=== PATIENT | male | born 1960 | race Caucasian/White ===

== ENCOUNTER 2017-02-01 08:15 | Outpatient (CLI) | payer BC | END 2017-02-01 08:16 | disposition home or self-care (01) | DX: E11.9 Type 2 diabetes mellitus without complications (principal); Z79.899 Other long term (current) drug therapy ==

== ENCOUNTER 2017-04-26 07:18 | Outpatient (CLI) | payer BC ==
[2017-04-26 11:04] LABS: BASOPHILS # (AUTO) 0.2 10^3/uL (0.0-0.1); EOSINOPHILS # (AUTO) 0.5 10^3/uL (0.0-0.7); EOSINOPHILS % (AUTO) 5.8 %; HCT - HEMATOCRIT 43.4 % (42.0-52.0); HGB - HEMOGLOBIN 14.7 g/dL (14.0-18.0); LYMPHOCYTES # (AUTO) 1.9 10^3/uL (1.5-3.5); LYMPHOCYTES % (AUTO) 24.9 %; MEAN CORPUSCULAR HEMOGLOBIN 30.6 pg (27.0-31.0); MEAN CORPUSCULAR HGB CONC 33.9 g/dL (32.0-36.0); MEAN CORPUSCULAR VOLUME 90.1 fL (80.0-94.0); MEAN PLATELET VOLUME 9.4 fL (7.4-11.4); MONOCYTES # (AUTO) 0.6 10^3/uL (0.0-1.0); MONOCYTES % (AUTO) 7.4 %; NEUTROPHILS # (AUTO) 4.7 10^3/uL (1.5-6.6); NEUTROPHILS % (AUTO) 59.9 %; RED BLOOD COUNT 4.82 10^6/uL (4.70-6.10); RED CELL DISTRIBUTION WIDTH 13.7 % (12.0-15.0); UNCORRECTED WHITE BLOOD COUNT 7.8 x10^3/uL; WHITE BLOOD COUNT 7.8 x10^3/uL (4.8-10.8)
[2017-04-26 11:19] LABS: ALBUMIN/GLOBULIN RATIO 1.5 (1.0-2.2); BILIRUBIN,TOTAL 0.8 mg/dL (0.2-1.0); BUN - BLOOD UREA NITROGEN 15 mg/dL (6-20); CALCIUM 9.3 mg/dL (8.5-10.3); CARBON DIOXIDE - CO2 27 mmol/L (21-32); CHLORIDE 99 mmol/L (101-111); CHOL/HDL RATIO 3.2 (<5.0); CHOLESTEROL 162 mg/dL; CREATININE 0.9 mg/dL (0.6-1.2); GFR - MDRD 87 (>89); GLUCOSE 128 mg/dL (70-100); HDL CHOLESTEROL 50 mg/dL; LDL/HDL RATIO 1.6 (<3.6); SODIUM 136 mmol/L (135-145); TOTAL PROTEIN 7.6 g/dL (6.7-8.2); TRIGLYCERIDES 148 mg/dL; VLDL CHOLESTEROL 30 mg/dL
== END 2017-04-26 07:19 | disposition home or self-care (01) ==
LOC: LAB.F 07:18
PROVIDERS: ATTEND Physician Assistant Medical
DX: Z00.00 Encounter for general adult medical examination without abnormal findings (principal); Z12.5 Encounter for screening for malignant neoplasm of prostate; E11.9 Type 2 diabetes mellitus without complications; E78.2 Mixed hyperlipidemia; E03.9 Hypothyroidism, unspecified; Z11.59 Encounter for screening for other viral diseases; Z79.899 Other long term (current) drug therapy
CPT/HCPCS: 36415; 80053; 80061; 83036; 84153; 84443; 85025; 86803

== ENCOUNTER 2017-04-26 08:00 | Outpatient (CLI) | payer BC ==
[2017-05-01 11:05] LABS: HEMOGLOBIN A1C 0.82 g/dL
== END 2017-04-26 23:59 | disposition home or self-care (01) ==
LOC: LAB.R 08:00
PROVIDERS: ATTEND Physician Assistant Medical
DX: E11.9 Type 2 diabetes mellitus without complications (principal); Z79.899 Other long term (current) drug therapy
CPT/HCPCS: 83036

== ENCOUNTER 2017-05-03 16:34 | Emergency (ER) | payer OTHER, BC ==
[2017-05-03 16:40] VITALS: BP 170/94
[2017-05-03] MEDS ORDERED: LIDOCAINE 2% 10 ML MDV ONE (16:42)
--- NOTE | 2017-05-03 16:49 | ED Physician Documentation ---
History of Present Illness - Stated complaint Stated Complaint: FINGER LAC - Chief complaint Chief Complaint: Ext Problem - History obtained from History obtained from: Patient - Additonal information Additional information: Patient is a 57-year-old man who sustained a small laceration to his nondominant left middle finger while he was cutting shrubbery. His last tetanus was 7 years ago which included pertussis. He has no other complaints of injury. The pain is worse with movement and better with rest. First-aid was done after the injury with washing the finger a bandage was placed and he is here seeking evaluation. He has no other complaints. Review of systems: For pertinent positive and negatives in the review of systems please see history of present illness. Otherwise all other systems have been reviewed and are negative. Dragon disclaimer: Parts of this medical record were created using voice recognition technology. Because of the inherent limitations of this system occasional same sounding word substitutions do occur and persist despite proofreading. Please read the document for context. Review of Systems Ten Systems: 10 systems reviewed and negative Constitutional: reports: Chills. denies: Fever Eyes: denies: Loss of vision Ears: denies: Loss of hearing Cardiac: denies: Chest pain / pressure, Palpitations Respiratory: denies: Dyspnea, Cough GI: denies: Abdominal Pain, Abdominal Swelling, Nausea, Vomiting : denies: Dysuria, Frequency, Hesitancy, Unable to Void Skin: denies: Rash, Lesions Musculoskeletal: denies: Neck pain, Back pain Neurologic: denies: Generalized weakness Psychiatric: denies: Depressed, Suicidal, Homicidal Endocrine: denies: Polydypsia, Polyuria, Polyphagia PD PAST MEDICAL HISTORY - Past Medical History Past Medical History: Yes Cardiovascular: Hypertension, High cholesterol Endocrine/Autoimmune: Type 2 diabetes, HyPOthyroidism - Past Surgical History Past Surgical History: No - Present Medications Home Medications: Ambulatory Orders Medication Instructions Recorded Confirmed Atorvastatin [Lipitor] 20 mg PO DAILY 01/23/15 05/03/17 Lisinopril 10 mg PO DAILY 01/23/15 05/03/17 Metformin HCl 2,000 mg PO DAILY 01/23/15 05/03/17 Levothyroxine Sodium 88 mcg PO DAILY 05/03/17 05/03/17 - Allergies Allergies/Adverse Reactions: Allergies Allergy/AdvReac Type Severity Reaction Status Date / Time No Known Drug Allergies Allergy Verified 01/23/15 12:56 - Social History Does the pt smoke?: No Smoking Status: Never smoker Does the pt drink ETOH?: No Does the pt have substance abuse?: No - Immunizations Immunizations are current?: Yes Immunizations: TDAP current <10years - POLST Patient has POLST: No PD ED PE NORMAL - General General: Alert and oriented X 3, No acute distress, Well developed/nourished - HEENT HEENT: Atraumatic - Neck Neck: Supple, no meningeal sign - Cardiac Cardiac: RRR - Respiratory Respiratory: No respiratory distress - Abdomen Abdomen: Soft Results - Vitals Vitals: Vital Signs - 24 hr 05/03/17 16:37 Temperature 36.7 C Heart Rate 71 Respiratory 17 Rate Blood Pressure 170/94 H O2 Saturation 100 Oxygen O2 Source Room air PD MEDICAL DECISION MAKING - ED course ED course: Patient has a very small laceration perhaps three quarters of a centimeter in length to the left middle finger. It is off the midline. There is no likelihood of tendon injury. Strength testing is normal at this for facialis and profundusThe superficialis and profundus tendon. The area was cleansed, anesthetized with 1 cc of lidocaine without epinephrine and 4 single interrupted sutures of 5.0 Ethicon were placed there is good approximation and hemostasis antibiotics are not indicated suture removal is recommended at 7-10 days . Disposition: To home Clinical impression: 1. Left middle finger laceration approximately 0.75 cm in length status post suture closure Departure - Departure Disposition: 01 Home, Self Care Clinical Impression: Laceration of middle finger of left hand without complication Condition: Good Instructions: ED Laceration Hand Follow-Up: Corinne Mccrary PA-C [Primary Care Provider] - Comments: Suture removal in approximately 7-10 days Discharge Date/Time: 05/03/17 17:11
== END 2017-05-03 17:11 | disposition home or self-care (01) ==
LOC: ED 16:34
DX: S61.213A Laceration without foreign body of left middle finger without damage to nail, initial encounter (principal); W45.8XXA Other foreign body or object entering through skin, initial encounter; Y93.H2 Activity, gardening and landscaping; I10 Essential (primary) hypertension; E11.9 Type 2 diabetes mellitus without complications
CPT/HCPCS: 1040M; 12001; 99282; 99283

== ENCOUNTER 2017-08-16 07:32 | Outpatient (CLI) | payer BC ==
[2017-08-16 12:56] LABS: HEMOGLOBIN A1C 0.93 g/dL
== END 2017-08-16 07:33 | disposition home or self-care (01) ==
LOC: LAB.F 07:32
PROVIDERS: ATTEND Physician Assistant Medical
DX: E11.9 Type 2 diabetes mellitus without complications (principal); Z79.899 Other long term (current) drug therapy
CPT/HCPCS: 36415; 82947; 83036

== ENCOUNTER 2017-11-10 07:15 | Outpatient (CLI) | payer BC ==
[2017-11-10 12:22] LABS: HB2 TOTAL 16.4 g/dL; HEMOGLOBIN A1C 0.66 g/dL; HEMOGLOBIN A1C % 5.8 % (4.6-6.2)
== END 2017-11-10 07:16 | disposition home or self-care (01) ==
LOC: LAB.F 07:15
PROVIDERS: ATTEND Physician Assistant Medical
DX: E11.9 Type 2 diabetes mellitus without complications (principal)
CPT/HCPCS: 36415; 82947; 83036

== ENCOUNTER 2018-02-27 08:51 | Outpatient (CLI) | payer BC ==
[2018-02-27 17:42] LABS: HEMOGLOBIN A1C 0.61 g/dL; HEMOGLOBIN A1C % 5.6 % (4.6-6.2)
== END 2018-02-27 08:52 | disposition home or self-care (01) ==
LOC: LAB.F 08:51
PROVIDERS: ATTEND Physician Assistant Medical
DX: E11.9 Type 2 diabetes mellitus without complications (principal); Z79.899 Other long term (current) drug therapy
CPT/HCPCS: 36415; 82947; 83036

== ENCOUNTER 2018-05-28 07:18 | Outpatient (CLI) | payer BC ==
[2018-05-28 12:01] LABS: BASOPHILS # (AUTO) 0.1 10^3/uL (0.0-0.1); BASOPHILS % (AUTO) 1.9 %; EOSINOPHILS # (AUTO) 0.4 10^3/uL (0.0-0.7); EOSINOPHILS % (AUTO) 5.6 %; HGB - HEMOGLOBIN 14.1 g/dL (14.0-18.0); LYMPHOCYTES # (AUTO) 1.6 10^3/uL (1.5-3.5); LYMPHOCYTES % (AUTO) 23.5 %; MEAN CORPUSCULAR HEMOGLOBIN 31.4 pg (27.0-31.0); MEAN CORPUSCULAR HGB CONC 33.9 g/dL (32.0-36.0); MEAN CORPUSCULAR VOLUME 92.7 fL (80.0-94.0); MEAN PLATELET VOLUME 9.7 fL (7.4-11.4); MONOCYTES # (AUTO) 0.5 10^3/uL (0.0-1.0); MONOCYTES % (AUTO) 7.1 %; NEUTROPHILS # (AUTO) 4.2 10^3/uL (1.5-6.6); NEUTROPHILS % (AUTO) 61.9 %; PLT - PLATELET COUNT 212 10^3/uL (130-450); RED BLOOD COUNT 4.49 10^6/uL (4.70-6.10); RED CELL DISTRIBUTION WIDTH 13.4 % (12.0-15.0); WHITE BLOOD COUNT 6.8 x10^3/uL (4.8-10.8)
[2018-05-28 12:27] LABS: ALBUMIN 4.1 g/dL (3.2-5.5); ALBUMIN/GLOBULIN RATIO 1.3 (1.0-2.2); ALKALINE PHOSPHATASE 54 IU/L (42-121); ALT ALANINE AMINOTRANSFERASE 28 IU/L (10-60); AST ASPARTATE AMINOTRANSFERASE 25 IU/L (10-42); BILIRUBIN,TOTAL 0.9 mg/dL (0.2-1.0); BUN - BLOOD UREA NITROGEN 15 mg/dL (6-20); CALCIUM 9.3 mg/dL (8.5-10.3); CARBON DIOXIDE - CO2 27 mmol/L (21-32); CHLORIDE 104 mmol/L (101-111); CHOL/HDL RATIO 2.8 (<5.0); CHOLESTEROL 148 mg/dL; CREATININE 0.9 mg/dL (0.6-1.2); GFR - MDRD 86 (>89); GLUCOSE 95 mg/dL (70-100); HDL CHOLESTEROL 53 mg/dL; LDL CHOLESTEROL,CALCULATED 81 mg/dL; LDL/HDL RATIO 1.5 (<3.6); SODIUM 137 mmol/L (135-145); TOTAL PROTEIN 7.3 g/dL (6.7-8.2); VLDL CHOLESTEROL 14 mg/dL
[2018-05-28 12:40] LABS: HB2 TOTAL 15.3 g/dL; HEMOGLOBIN A1C 0.55 g/dL; HEMOGLOBIN A1C % 5.4 % (4.6-6.2)
== END 2018-05-28 07:19 | disposition home or self-care (01) ==
LOC: LAB.F 07:18
PROVIDERS: ATTEND Physician Assistant Medical
DX: E03.9 Hypothyroidism, unspecified (principal); Z79.899 Other long term (current) drug therapy; E78.2 Mixed hyperlipidemia; E11.9 Type 2 diabetes mellitus without complications
CPT/HCPCS: 36415; 80053; 80061; 83036; 83721; 84443; 85025

== ENCOUNTER 2018-09-10 07:09 | Outpatient (CLI) | payer BC ==
[2018-09-10 15:29] LABS: ALBUMIN 4.6 g/dL (3.2-5.5); ALBUMIN/GLOBULIN RATIO 1.6 (1.0-2.2); ALKALINE PHOSPHATASE 65 IU/L (42-121); ALT ALANINE AMINOTRANSFERASE 32 IU/L (10-60); AST ASPARTATE AMINOTRANSFERASE 24 IU/L (10-42); BILIRUBIN,TOTAL 0.9 mg/dL (0.2-1.0); BUN - BLOOD UREA NITROGEN 17 mg/dL (6-20); CARBON DIOXIDE - CO2 29 mmol/L (21-32); CHLORIDE 102 mmol/L (101-111); CHOL/HDL RATIO 2.6 (<5.0); CHOLESTEROL 148 mg/dL; CREATININE 0.9 mg/dL (0.6-1.2); GFR - MDRD 86 (>89); GLUCOSE 115 mg/dL (70-100); HDL CHOLESTEROL 57 mg/dL; LDL CHOLESTEROL,CALCULATED 79 mg/dL; LDL/HDL RATIO 1.4 (<3.6); SODIUM 136 mmol/L (135-145); TOTAL PROTEIN 7.5 g/dL (6.7-8.2); VLDL CHOLESTEROL 12 mg/dL
[2018-09-10 15:39] LABS: HB2 TOTAL 15.4 g/dL; HEMOGLOBIN A1C 0.58 g/dL; HEMOGLOBIN A1C % 5.6 % (4.6-6.2)
== END 2018-09-10 07:10 | disposition home or self-care (01) ==
LOC: LAB.F 07:09
PROVIDERS: ATTEND Internal Medicine
DX: E78.5 Hyperlipidemia, unspecified (principal); E11.9 Type 2 diabetes mellitus without complications; E03.9 Hypothyroidism, unspecified
CPT/HCPCS: 36415; 80053; 80061; 82043; 83036; 83721; 84443

== ENCOUNTER 2018-09-15 12:49 | Emergency (ER) | payer BC ==
[2018-09-15 13:06] VITALS: BP 142/81
[2018-09-15 13:13] LABS: BILIRUBIN,URINE NEGATIVE (NEGATIVE); GLUCOSE, URINE (UA) NEGATIVE (NEGATIVE); KETONES,URINE (UA) NEGATIVE (NEGATIVE); LEUKOCYTE ESTERASE, URINE NEGATIVE (NEGATIVE); NITRITE,URINE NEGATIVE (NEGATIVE); OCCULT BLOOD,URINE SMALL (NEGATIVE); PROTEIN,URINE NEGATIVE (NEGATIVE); UROBILINOGEN,URINE 0.2 (NORMAL) E.U./dL (NORMAL)
[2018-09-15 13:24] LABS: BACTERIA,URINE None Seen /HPF (None Seen); CLARITY,URINE CLEAR (CLEAR); RBC,URINE 0-5 /HPF (0-5); SQUAMOUS EPITHELIAL CELL,UR NONE SEEN (<= Few)
[2018-09-15 13:30] LABS: BASOPHILS # (AUTO) 0.1 10^3/uL (0.0-0.1); BASOPHILS % (AUTO) 0.5 %; EOSINOPHILS # (AUTO) 0.1 10^3/uL (0.0-0.7); EOSINOPHILS % (AUTO) 0.6 %; HGB - HEMOGLOBIN 14.5 g/dL (14.0-18.0); LYMPHOCYTES # (AUTO) 1.1 10^3/uL (1.5-3.5); LYMPHOCYTES % (AUTO) 9.8 %; MEAN CORPUSCULAR HEMOGLOBIN 31.5 pg (27.0-31.0); MEAN CORPUSCULAR HGB CONC 34.5 g/dL (32.0-36.0); MEAN CORPUSCULAR VOLUME 91.3 fL (80.0-94.0); MEAN PLATELET VOLUME 8.8 fL (7.4-11.4); MONOCYTES # (AUTO) 0.9 10^3/uL (0.0-1.0); MONOCYTES % (AUTO) 7.7 %; NEUTROPHILS # (AUTO) 9.3 10^3/uL (1.5-6.6); NEUTROPHILS % (AUTO) 81.4 %; PLT - PLATELET COUNT 202 10^3/uL (130-450); WHITE BLOOD COUNT 11.5 x10^3/uL (4.8-10.8)
[2018-09-15 13:43] LABS: ALBUMIN 4.4 g/dL (3.2-5.5); ALBUMIN/GLOBULIN RATIO 1.4 (1.0-2.2); BILIRUBIN,TOTAL 0.9 mg/dL (0.2-1.0); CALCIUM 9.3 mg/dL (8.5-10.3); CREATININE 1.4 mg/dL (0.6-1.2); TOTAL PROTEIN 7.5 g/dL (6.7-8.2)
--- NOTE | 2018-09-15 15:04 | ED Physician Documentation ---
PD HPI ABD PAIN - Stated complaint Stated Complaint: L SIDE PX - Chief complaint Chief Complaint: Abd Pain - History obtained from History obtained from: Patient - History of Present Illness Timing - onset: Other (L side and LUQ pain since yesterday with 1 episode of vomiting. Was sharp, now more pressure. Now rad to LLQ. Nausea gone. Took ibuprofen with mild relief.) PD PAST MEDICAL HISTORY - Past Medical History Past Medical History: Yes Cardiovascular: Hypertension, High cholesterol Endocrine/Autoimmune: Type 2 diabetes, HyPOthyroidism - Past Surgical History Past Surgical History: No - Present Medications Home Medications: Ambulatory Orders Medication Instructions Recorded Confirmed Atorvastatin [Lipitor] 20 mg PO DAILY 01/23/15 05/03/17 Lisinopril 10 mg PO DAILY 01/23/15 05/03/17 Metformin HCl 2,000 mg PO DAILY 01/23/15 05/03/17 Levothyroxine Sodium 88 mcg PO DAILY 05/03/17 05/03/17 Hydrocodone/Acetaminophen 1 - 2 each PO Q6H PRN #14 tablet 09/15/18 [Hydrocodon-Acetaminophen 5-325] Tamsulosin [Flomax] 0.4 mg PO DAILY #14 capsule 09/15/18 - Allergies Allergies/Adverse Reactions: Allergies Allergy/AdvReac Type Severity Reaction Status Date / Time No Known Drug Allergies Allergy Verified 09/15/18 13:06 - Social History Does the pt smoke?: No Smoking Status: Never smoker Does the pt drink ETOH?: No Does the pt have substance abuse?: No - Family History Family history: reports: Non contributory - Immunizations Immunizations are current?: Yes Immunizations: TDAP current <10years - POLST Patient has POLST: No PD ED PE NORMAL - Vitals Vital signs reviewed: Yes - General General: Alert and oriented X 3, No acute distress - Abdomen Abdomen: Normal bowel sounds, Soft, Non tender - Back Back: No CVA TTP, No spinal TTP - Derm Derm: Normal color, Warm and dry - Neuro Neuro: Alert and oriented X 3, Normal speech - Psych Psych: Normal mood, Normal affect Results - Vitals Vitals: Vital Signs - 24 hr 09/15/18 13:04 Temperature 37.2 C Heart Rate 82 Respiratory 18 Rate Blood Pressure 142/81 H O2 Saturation 100 Oxygen O2 Source Room air - Labs Labs: Laboratory Tests 09/15/18 09/15/18 09/15/18 13:10 13:23 13:23 WBC 11.5 H RBC 4.60 L Hgb 14.5 Hct 42.0 MCV 91.3 MCH 31.5 H MCHC 34.5 RDW 13.0 Plt Count 202 MPV 8.8 Neut # (Auto) 9.3 H Lymph # (Auto) 1.1 L [place] # (Auto) 0.9 Eos # (Auto) 0.1 Baso # (Auto) 0.1 Absolute Nucleated RBC 0.00 Nucleated RBC % 0.0 Sodium 135 Potassium 3.9 Chloride 99 L Carbon Dioxide 27 Anion Gap 9.0 BUN 17 Creatinine 1.4 H Estimated GFR (MDRD) 52 L Glucose 125 H Calcium 9.3 Total Bilirubin 0.9 AST 26 ALT 26 Alkaline Phosphatase 63 Total Protein 7.5 Albumin 4.4 Globulin 3.1 Albumin/Globulin Ratio 1.4 Lipase 24 Urine Color LIGHT YELLOW Urine Clarity CLEAR Urine pH 6.0 Ur Specific [place] <=1.005 Urine Protein NEGATIVE Urine Glucose (UA) NEGATIVE Urine Ketones NEGATIVE Urine Occult Blood SMALL H Urine Nitrite NEGATIVE Urine Bilirubin NEGATIVE Urine Urobilinogen 0.2 (NORMAL) Ur Leukocyte Esterase NEGATIVE Urine RBC 0-5 Urine WBC 0-3 Ur Squamous Epith Cells NONE SEEN Urine Bacteria None Seen Ur Microscopic Review INDICATED Urine Culture Comments NOT INDICATED - Rads (name of study) CT KUB Radiology: EMP read contemporaneously (4mm L UVC stone with some obstruction) PD MEDICAL DECISION MAKING - ED course ED course: 58-year-old gentleman with symptoms reminiscent of renal colic. Note made that he had outpatient labs done 5 days ago and his creatinine was 0.9, now 1.4. Avoidance of nephrotoxic agents including NSAIDs was advised. He declines pain medication on initial evaluation. Departure - Departure Disposition: Home, Self Care Clinical Impression: Ureterolithiasis Condition: Good Record reviewed to determine appropriate education?: Yes Instructions: ED Stone Renal W Colic Prescriptions: Hydrocodone/Acetaminophen [Hydrocodon-Acetaminophen 5-325] 1 - 2 each PO Q6H PRN #14 tablet PRN Reason: pain Tamsulosin [Flomax] 0.4 mg PO DAILY #14 capsule Comments: Reasonable to follow-up with urologist in a few days if not better. The closest to you [place] in [place], the numbers [phone]. Even if you are better you should have your renal function retested by your doctor in about a week. Drink plenty of fluids. As discussed we should be avoiding any nonsteroidal anti- inflammatory drugs such as Motrin, Aleve, ibuprofen, Advil.
--- NOTE | 2018-09-15 16:33 | CT Report ---
Reason: L flank pain Procedure Date: 09/15/2018 Accession Number: [id number] / [id number] Procedure: CT - Abdomen/Pelvis W/O CPT Code: FULL RESULT: EXAM: CT ABDOMEN AND PELVIS (CT KUB) EXAM DATE: 09/15/2018 04:08 PM. CLINICAL HISTORY: L flank pain. COMPARISONS: CT KUB 01/23/2015. TECHNIQUE: Routine axial helical CT imaging was performed through the abdomen and pelvis without IV contrast. Reconstructions: Coronal and sagittal. In accordance with CT protocol optimization, one or more of the following dose reduction techniques were utilized for this exam: automated exposure control, adjustment of mA and/or KV based on patient size, or use of iterative reconstructive technique. FINDINGS: Lung Bases: Unremarkable. Mild coronary artery calcifications. Right Kidney/Ureter: New nonobstructing 3 mm lower pole calculus. No hydronephrosis, hydroureter or significant perinephric stranding. Left Kidney/Ureter: Mild to moderate hydroureteronephrosis, increased from the prior exam, with perinephric and periureteral stranding again demonstrated. Ureteral dilatation extends down to the level of a 4 mm calculus at the UVJ. No intrarenal calculi. Other Solid Organs: Noncontrast images of the solid organs are grossly unremarkable. Gallbladder/Bile Ducts: Unremarkable. Peritoneal Cavity: No free fluid, free air or kait adenopathy. Bowel is grossly unremarkable. Pelvic Organs: No bladder stones or wall thickening. Noncontrast images of the visualized pelvic organs are unremarkable. Vasculature: Unremarkable. Other: None. IMPRESSION: 1. Left urinary tract obstruction secondary to a 4 mm calculus at the left UVJ. 2. Nonobstructing right nephrolithiasis. RADIA
--- NOTE | 2018-09-17 15:21 | ED Physician Documentation ---
PD HPI ABD PAIN - Stated complaint Stated Complaint: L SIDE PX - Chief complaint Chief Complaint: Abd Pain Review of Systems Constitutional: denies: Fever, Chills Cardiac: denies: Chest pain / pressure, Palpitations Respiratory: denies: Dyspnea, Cough GI: reports: Abdominal Pain, Nausea. denies: Vomiting, Constipation, Diarrhea : denies: Dysuria, Frequency, Hesitancy, Incontinent, Hematuria PD PAST MEDICAL HISTORY - Past Medical History Past Medical History: Yes Cardiovascular: Hypertension, High cholesterol Endocrine/Autoimmune: Type 2 diabetes, HyPOthyroidism - Past Surgical History Past Surgical History: No - Present Medications Home Medications: Ambulatory Orders Medication Instructions Recorded Confirmed Atorvastatin [Lipitor] 20 mg PO DAILY 01/23/15 05/03/17 Lisinopril 10 mg PO DAILY 01/23/15 05/03/17 Metformin HCl 2,000 mg PO DAILY 01/23/15 05/03/17 Levothyroxine Sodium 88 mcg PO DAILY 05/03/17 05/03/17 Hydrocodone/Acetaminophen 1 - 2 each PO Q6H PRN #14 tablet 09/15/18 [Hydrocodon-Acetaminophen 5-325] Tamsulosin [Flomax] 0.4 mg PO DAILY #14 capsule 09/15/18 - Allergies Allergies/Adverse Reactions: Allergies Allergy/AdvReac Type Severity Reaction Status Date / Time No Known Drug Allergies Allergy Verified 09/15/18 13:06 - Social History Does the pt smoke?: No Smoking Status: Never smoker Does the pt drink ETOH?: No Does the pt have substance abuse?: No - Immunizations Immunizations are current?: Yes Immunizations: TDAP current <10years - POLST Patient has POLST: No Results - Vitals Vitals: Oxygen O2 Source Room air - Labs Labs: Laboratory Tests 09/15/18 09/15/18 09/15/18 13:10 13:23 13:23 WBC 11.5 H RBC 4.60 L Hgb 14.5 Hct 42.0 MCV 91.3 MCH 31.5 H MCHC 34.5 RDW 13.0 Plt Count 202 MPV 8.8 Neut # (Auto) 9.3 H Lymph # (Auto) 1.1 L [place] # (Auto) 0.9 Eos # (Auto) 0.1 Baso # (Auto) 0.1 Absolute Nucleated RBC 0.00 Nucleated RBC % 0.0 Sodium 135 Potassium 3.9 Chloride 99 L Carbon Dioxide 27 Anion Gap 9.0 BUN 17 Creatinine 1.4 H Estimated GFR (MDRD) 52 L Glucose 125 H Calcium 9.3 Total Bilirubin 0.9 AST 26 ALT 26 Alkaline Phosphatase 63 Total Protein 7.5 Albumin 4.4 Globulin 3.1 Albumin/Globulin Ratio 1.4 Lipase 24 Urine Color LIGHT YELLOW Urine Clarity CLEAR Urine pH 6.0 Ur Specific [place] <=1.005 Urine Protein NEGATIVE Urine Glucose (UA) NEGATIVE Urine Ketones NEGATIVE Urine Occult Blood SMALL H Urine Nitrite NEGATIVE Urine Bilirubin NEGATIVE Urine Urobilinogen 0.2 (NORMAL) Ur Leukocyte Esterase NEGATIVE Urine RBC 0-5 Urine WBC 0-3 Ur Squamous Epith Cells NONE SEEN Urine Bacteria None Seen Ur Microscopic Review INDICATED Urine Culture Comments NOT INDICATED PD MEDICAL DECISION MAKING - ED course ED course: This document for ROS only Departure - Departure Disposition: 01 Home, Self Care Clinical Impression: Ureterolithiasis Condition: Good Instructions: ED Stone Renal W Colic Prescriptions: Hydrocodone/Acetaminophen [Hydrocodon-Acetaminophen 5-325] 1 - 2 each PO Q6H PRN #14 tablet PRN Reason: pain Tamsulosin [Flomax] 0.4 mg PO DAILY #14 capsule Comments: Reasonable to follow-up with urologist in a few days if not better. The closest to you is in [place], the numbers [phone]. Even if you are better you should have your renal function retested by your doctor in about a week. Drink plenty of fluids. As discussed we should be avoiding any nonsteroidal anti- inflammatory drugs such as Motrin, Aleve, ibuprofen, Advil. Discharge Date/Time: 09/15/18 17:40
== END 2018-09-15 17:40 | disposition home or self-care (01) ==
LOC: ED 12:49
DX: N20.1 Calculus of ureter (principal); R79.89 Other specified abnormal findings of blood chemistry; I10 Essential (primary) hypertension; E11.9 Type 2 diabetes mellitus without complications; Z79.84 Long term (current) use of oral hypoglycemic drugs
CPT/HCPCS: 36415; 74176; 80053; 81001; 81003; 83690; 85025; 87086; 99283

== ENCOUNTER 2019-06-26 07:53 | Outpatient (CLI) | payer BC ==
[2019-06-26 10:18] LABS: ALBUMIN 4.4 g/dL (3.2-5.5); ALBUMIN/GLOBULIN RATIO 1.2 (1.0-2.2); ALKALINE PHOSPHATASE 61 IU/L (42-121); ALT ALANINE AMINOTRANSFERASE 29 IU/L (10-60); AST ASPARTATE AMINOTRANSFERASE 23 IU/L (10-42); BILIRUBIN,TOTAL 0.9 mg/dL (0.2-1.0); BUN - BLOOD UREA NITROGEN 18 mg/dL (6-20); CALCIUM 9.5 mg/dL (8.5-10.3); CARBON DIOXIDE - CO2 29 mmol/L (21-32); CHLORIDE 99 mmol/L (101-111); CHOL/HDL RATIO 2.9 (<5.0); CHOLESTEROL 158 mg/dL; GFR - MDRD 76 (>89); GLUCOSE 125 mg/dL (70-100); HDL CHOLESTEROL 54 mg/dL; LDL CHOLESTEROL,CALCULATED 84 mg/dL; LDL/HDL RATIO 1.6 (<3.6); SODIUM 137 mmol/L (135-145); VLDL CHOLESTEROL 20 mg/dL
[2019-06-26 10:21] LABS: HEMOGLOBIN A1C 0.71 g/dL; HEMOGLOBIN A1C % 6.5 % (4.6-6.2)
== END 2019-06-26 07:54 | disposition home or self-care (01) ==
LOC: LAB.S 07:53
PROVIDERS: ATTEND Internal Medicine
DX: E78.5 Hyperlipidemia, unspecified (principal); E11.9 Type 2 diabetes mellitus without complications; E03.9 Hypothyroidism, unspecified
CPT/HCPCS: 36415; 80053; 80061; 83036; 83721; 84443

== ENCOUNTER 2019-06-30 08:00 | Emergency (ER) | payer BC ==
[2019-06-30 08:22] LABS: BILIRUBIN,URINE NEGATIVE (NEGATIVE); GLUCOSE, URINE (UA) NEGATIVE (NEGATIVE); KETONES,URINE (UA) NEGATIVE (NEGATIVE); LEUKOCYTE ESTERASE, URINE NEGATIVE (NEGATIVE); NITRITE,URINE NEGATIVE (NEGATIVE); OCCULT BLOOD,URINE NEGATIVE (NEGATIVE); PH,URINE 5.5 PH (5.0-7.5); PROTEIN,URINE NEGATIVE (NEGATIVE); UROBILINOGEN,URINE 0.2 (NORMAL) E.U./dL (NORMAL)
--- NOTE | 2019-06-30 08:23 | ED Physician Documentation ---
History of Present Illness - Stated complaint Stated Complaint: SIDE PX - Chief complaint Chief Complaint: Abd Pain - History obtained from History obtained from: Patient - History of Present Illness Timing: How many weeks ago (1) Pain level max: 7 Pain level now: 5 - Additonal information Additional information: R flank pain x 1 week. Has had 2 kidney stones in the past and states that this feels similar. No fevers. No vomiting. No blood in the urine. Nothing makes it better or worse. Review of Systems Constitutional: denies: Fever, Chills Throat: denies: Sore throat Cardiac: denies: Chest pain / pressure Respiratory: denies: Cough GI: denies: Vomiting, Diarrhea Skin: denies: Rash Musculoskeletal: denies: Neck pain Neurologic: denies: Focal weakness, Numbness, Headache PD PAST MEDICAL HISTORY - Past Medical History Cardiovascular: Hypertension, High cholesterol Endocrine/Autoimmune: Type 2 diabetes, HyPOthyroidism - Past Surgical History Past Surgical History: No - Present Medications Home Medications: Ambulatory Orders Medication Instructions Recorded Confirmed Atorvastatin [Lipitor] 20 mg PO DAILY 01/23/15 05/03/17 Lisinopril 10 mg PO DAILY 01/23/15 05/03/17 Metformin HCl 1,500 mg PO DAILY 01/23/15 05/03/17 Levothyroxine Sodium 88 mcg PO DAILY 05/03/17 05/03/17 Hydrocodone/Acetaminophen 1 - 2 each PO Q6H PRN #14 tablet 09/15/18 [Hydrocodon-Acetaminophen 5-325] Tamsulosin [Flomax] 0.4 mg PO DAILY #14 capsule 09/15/18 - Allergies Allergies/Adverse Reactions: Allergies Allergy/AdvReac Type Severity Reaction Status Date / Time No Known Drug Allergies Allergy Verified 06/30/19 08:06 - Social History Does the pt smoke?: No Smoking Status: Never smoker Does the pt drink ETOH?: No Does the pt have substance abuse?: No - Immunizations Immunizations are current?: Yes Immunizations: TDAP current <10years - POLST Patient has POLST: No PD ED PE NORMAL - Vitals Vital signs reviewed: Yes - General General: Alert and oriented X 3, No acute distress, Well developed/nourished - HEENT HEENT: PERRL, Moist mucous membranes - Neck Neck: Supple, no meningeal sign - Cardiac Cardiac: RRR, Strong equal pulses - Respiratory Respiratory: No respiratory distress, Clear bilaterally - Abdomen Abdomen: Soft, Non tender, Non distended - Back Back: No CVA TTP, No spinal TTP - Derm Derm: Warm and dry - Neuro Neuro: Alert and oriented X 3 - Psych Psych: Normal mood, Normal affect Results - Vitals Vitals: Vital Signs - 24 hr 06/30/19 06/30/19 08:04 09:18 Temperature 36.1 C L 36.6 C Heart Rate 77 58 L Respiratory 18 19 Rate Blood Pressure 141/80 H 140/86 H O2 Saturation 99 100 Oxygen O2 Source Room air - Labs Labs: Laboratory Tests 06/30/19 06/30/19 06/30/19 08:14 08:23 08:23 WBC 7.3 RBC 4.76 Hgb 15.0 Hct 43.7 MCV 91.8 MCH 31.5 H MCHC 34.3 RDW 12.6 Plt Count 202 MPV 10.6 Neut # (Auto) 4.4 Lymph # (Auto) 1.8 [place] # (Auto) 0.6 Eos # (Auto) 0.4 Baso # (Auto) 0.1 Absolute Nucleated RBC 0.00 Nucleated RBC % 0.0 Sodium 139 Potassium 4.0 Chloride 101 Carbon Dioxide 28 Anion Gap 10.0 BUN 16 Creatinine 1.0 Estimated GFR (MDRD) 76 L Glucose 127 H Calcium 9.6 Total Bilirubin 0.6 AST 25 ALT 30 Alkaline Phosphatase 55 Total Protein 7.7 Albumin 4.4 Globulin 3.3 Albumin/Globulin Ratio 1.3 Lipase 29 Urine Color YELLOW Urine Clarity CLEAR Urine pH 5.5 Ur Specific [place] 1.020 Urine Protein NEGATIVE Urine Glucose (UA) NEGATIVE Urine Ketones NEGATIVE Urine Occult Blood NEGATIVE Urine Nitrite NEGATIVE Urine Bilirubin NEGATIVE Urine Urobilinogen 0.2 (NORMAL) Ur Leukocyte Esterase NEGATIVE Ur Microscopic Review NOT INDICATED Urine Culture Comments NOT INDICATED - Rads (name of study) CT abd/pelvis Radiology: Prelim report reviewed, EMP read contemporaneously, See rad report (No acute abnormalities) PD MEDICAL DECISION MAKING - ED course Complexity details: reviewed results, re-evaluated patient, considered differential, d/w patient ED course: Patient with right flank pain of unclear etiology. No evidence of ureteral stones. No blood in the urine. No evidence of tumors or masses. Patient is well-appearing, nontoxic. Afebrile. Normal laboratory testing. Possible myofascial pain? We will follow-up with his PCP for further care. Patient counseled regarding signs and symptoms for which I believe and urgent re- evaluation would be necessary. Patient with good understanding of and agreement to plan and is comfortable going home at this time This document was made in part using voice recognition software. While efforts are made to proofread this document, sound alike and grammatical errors may occur. Departure - Departure Disposition: 01 Home, Self Care Clinical Impression: Flank pain Condition: Good Instructions: ED Acute Pain [facility]O Follow-Up: Nathaniel Powell MD [Primary Care Provider] - Within 1 week Comments: The cause of your pain is unclear. Your testing is normal today. Follow-up with your doctor for further care. Return if you worsen.
[2019-06-30 08:24] LABS: CLARITY,URINE CLEAR (CLEAR)
[2019-06-30] MEDS ORDERED: IOVERSOL 320 100 ML VIAL IVP ONE ×2 (08:34→08:54)
[2019-06-30 08:41] LABS: ALBUMIN 4.4 g/dL (3.2-5.5); ALBUMIN/GLOBULIN RATIO 1.3 (1.0-2.2); BILIRUBIN,TOTAL 0.6 mg/dL (0.2-1.0); CALCIUM 9.6 mg/dL (8.5-10.3); TOTAL PROTEIN 7.7 g/dL (6.7-8.2)
[2019-06-30 08:51] LABS: BASOPHILS # (AUTO) 0.1 10^3/uL (0.0-0.1); BASOPHILS % (AUTO) 1.9 %; EOSINOPHILS # (AUTO) 0.4 10^3/uL (0.0-0.7); EOSINOPHILS % (AUTO) 4.9 %; LYMPHOCYTES # (AUTO) 1.8 10^3/uL (1.5-3.5); LYMPHOCYTES % (AUTO) 24.7 %; MEAN CORPUSCULAR HEMOGLOBIN 31.5 pg (27.0-31.0); MEAN CORPUSCULAR HGB CONC 34.3 g/dL (32.0-36.0); MEAN CORPUSCULAR VOLUME 91.8 fL (80.0-94.0); MEAN PLATELET VOLUME 10.6 fL (7.4-11.4); MONOCYTES # (AUTO) 0.6 10^3/uL (0.0-1.0); MONOCYTES % (AUTO) 7.8 %; NEUTROPHILS # (AUTO) 4.4 10^3/uL (1.5-6.6); NEUTROPHILS % (AUTO) 60.3 %; PLT - PLATELET COUNT 202 10^3/uL (130-450); RED BLOOD COUNT 4.76 10^6/uL (4.70-6.10); RED CELL DISTRIBUTION WIDTH 12.6 % (12.0-15.0); WHITE BLOOD COUNT 7.3 x10^3/uL (4.8-10.8)
[2019-06-30 09:19] VITALS: BP 140/86
[2019-06-30] MEDS ORDERED: KETOROLAC 30 MG/ML VIAL IVP STA (09:27)
--- NOTE | 2019-06-30 09:30 | CT Report ---
Reason: R flank pain Procedure Date: 06/30/2019 Accession Number: [id number] / [id number] Procedure: CT - Abdomen/Pelvis W CPT Code: FULL RESULT: EXAM: CT ABDOMEN AND PELVIS EXAM DATE: 06/30/2019 08:48 AM. CLINICAL HISTORY: R flank pain. COMPARISONS: ABDOMEN/PELVIS W/O 09/15/2018 3:58 PM. TECHNIQUE: Routine helical CT imaging was performed through the abdomen and pelvis. IV contrast: OPTI 320 90ML. Enteric contrast: No. Reconstructions: Coronal and sagittal. In accordance with CT protocol optimization, one or more of the following dose reduction techniques were utilized for this exam: automated exposure control, adjustment of mA and/or KV based on patient size, or use of iterative reconstructive technique. FINDINGS: Lung Bases: Mild subsegmental atelectasis/scarring at the right lung base, somewhat increased from prior. Liver: Normal. No masses. Gallbladder/Bile Ducts: Unremarkable. Spleen: Normal. Pancreas: Normal. Adrenal Glands: Normal. Kidneys: No hydronephrosis. 7 mm nonobstructing lower pole right renal calculus. No convincing solid renal mass. Ureters are symmetric, nondilated without convincing calculus. Peritoneal Cavity/Bowel: No free air or free fluid. No mass or acute inflammatory process. No obstruction. The appendix is well visualized and normal. Pelvic Organs: Normal. The bladder and visualized pelvic organs are within normal limits. Vasculature: No aneurysms or other significant abnormality. Bones: No acute fracture or suspicious bony lesion. Multilevel lumbar degeneration. Mild to moderate bilateral sacroiliac joint DJD. Other: None. IMPRESSION: 1. No convincing acute abdominopelvic findings. 2. Nonobstructing right renal calculus. 3. Other findings as noted above. RADIA
== END 2019-06-30 09:52 | disposition home or self-care (01) ==
LOC: ED 08:00
DX: R10.9 Unspecified abdominal pain (principal); I10 Essential (primary) hypertension; E11.9 Type 2 diabetes mellitus without complications; Z79.84 Long term (current) use of oral hypoglycemic drugs
CPT/HCPCS: 36415; 74177; 80053; 81003; 83690; 85025; 99282; 99284; Q9967; 81001; 87086

== ENCOUNTER 2020-03-08 16:35 | Emergency (ER) | payer BC ==
[2020-03-08] MEDS ORDERED: HYDROmorphone 1 MG/ML CARPUJECT IVP STA (17:21)
[2020-03-08] MEDS ORDERED: KETOROLAC 30 MG/ML VIAL IVP STA (17:21)
[2020-03-08] MEDS ORDERED: ONDANSETRON 4 MG/2 ML VIAL IVP STA (17:21)
--- NOTE | 2020-03-08 17:21 | ED Physician Documentation ---
PD HPI ABD PAIN - Stated complaint Stated Complaint: LOWER ABDOMINAL PAIN R SIDE - Chief complaint Chief Complaint: Abd Pain - History obtained from History obtained from: Patient (2 days of right-sided abdominal and flank pain similar to prior kidney stones associated with nausea and vomiting. Has never needed intervention on his kidney stones. Review of the chart shows his last CT was done here last June showing a nephrolith on the right which is likely causative today.) Review of Systems Constitutional: denies: Fever, Chills Throat: reports: Reviewed and negative Cardiac: reports: Reviewed and negative Respiratory: reports: Reviewed and negative PD PAST MEDICAL HISTORY - Past Medical History Cardiovascular: Hypertension, High cholesterol Endocrine/Autoimmune: Type 2 diabetes, HyPOthyroidism : Kidney stones - Past Surgical History Past Surgical History: No - Present Medications Home Medications: Ambulatory Orders Medication Instructions Recorded Confirmed Atorvastatin [Lipitor] 20 mg PO DAILY 01/23/15 05/03/17 Lisinopril 10 mg PO DAILY 01/23/15 05/03/17 Metformin HCl 1,500 mg PO DAILY 01/23/15 05/03/17 Levothyroxine Sodium 88 mcg PO DAILY 05/03/17 05/03/17 Hydrocodone/Acetaminophen 1 - 2 each PO Q6H PRN #14 tablet 09/15/18 [Hydrocodon-Acetaminophen 5-325] Tamsulosin [Flomax] 0.4 mg PO DAILY #14 capsule 09/15/18 Ciprofloxacin HCl [Cipro] 500 mg PO BID #20 tablet 03/08/20 Metoclopramide [Reglan] 10 mg PO Q6H PRN #20 tablet 03/08/20 Oxycodone HCl/Acetaminophen 1 - 2 each PO Q6H PRN #14 tablet 03/08/20 [Percocet 5-325 mg Tablet] - Allergies Allergies/Adverse Reactions: Allergies Allergy/AdvReac Type Severity Reaction Status Date / Time No Known Drug Allergies Allergy Verified 06/30/19 08:06 - Social History Does the pt smoke?: No Smoking Status: Never smoker Does the pt drink ETOH?: No Does the pt have substance abuse?: No - Immunizations Immunizations are current?: Yes Immunizations: TDAP current <10years - POLST Patient has POLST: No PD ED PE NORMAL - Vitals Vital signs reviewed: Yes - General General: Alert and oriented X 3, No acute distress - Abdomen Abdomen: Normal bowel sounds, Soft, Non tender - Back Back: No CVA TTP, No spinal TTP - Derm Derm: No rash - Neuro Neuro: Alert and oriented X 3, Normal speech Results - Vitals Vitals: Vital Signs - 24 hr 03/08/20 16:41 Temperature 36.9 C Heart Rate 79 Respiratory 18 Rate Blood Pressure 178/89 H O2 Saturation 97 Oxygen O2 Source Room air - Labs Labs: Laboratory Tests 03/08/20 03/08/20 03/08/20 17:22 17:22 18:40 WBC 14.2 H RBC 4.80 Hgb 15.4 Hct 43.6 MCV 90.8 MCH 32.1 H MCHC 35.3 RDW 12.7 Plt Count 228 MPV 10.3 Neut # (Auto) 12.0 H Lymph # (Auto) 1.2 L [place] # (Auto) 0.9 Eos # (Auto) 0.0 Baso # (Auto) 0.1 Absolute Nucleated RBC 0.00 Nucleated RBC % 0.0 Sodium 133 L Potassium 4.0 Chloride 97 L Carbon Dioxide 25 Anion Gap 11.0 BUN 10 Creatinine 1.0 Estimated GFR (MDRD) 76 L Glucose 154 H Calcium 9.4 Total Bilirubin 1.0 AST 24 ALT 30 Alkaline Phosphatase 66 Total Protein 8.3 H Albumin 4.8 Globulin 3.5 Albumin/Globulin Ratio 1.4 Lipase 27 Urine Color YELLOW Urine Clarity CLEAR Urine pH 5.5 Ur Specific [place] 1.010 Urine Protein NEGATIVE Urine Glucose (UA) NEGATIVE Urine Ketones 40 H Urine Occult Blood NEGATIVE Urine Nitrite NEGATIVE Urine Bilirubin NEGATIVE Urine Urobilinogen 0.2 (NORMAL) Ur Leukocyte Esterase NEGATIVE Ur Microscopic Review NOT INDICATED Urine Culture Comments NOT INDICATED - Rads (name of study) CT abdomen and pelvis Radiology: EMP read contemporaneously (Stranding around the right kidney and ureter may indicate an upper UTI or sequela of recently passed stone. There is a nonobstructive right nephrolith.) PD MEDICAL DECISION MAKING - ED course ED course: This gentleman has a history of renal colic and presents with flank and abdominal pain, initially I decided not to do a CT but eventually did do a CT because of leukocytosis which was suggestive of either pyelonephritis or recently passed stone. Given the lack of hematuria pyelonephritis despite the otherwise normal urinalysis is still in differential and he should Cipro. His pain was minimal after the administration of pain medications here. Departure - Departure Disposition: Home, Self Care Clinical Impression: Flank pain Condition: Good Record reviewed to determine appropriate education?: Yes Instructions: Pyelonephritis Dc Prescriptions: Ciprofloxacin HCl [Cipro] 500 mg PO BID #20 tablet Metoclopramide [Reglan] 10 mg PO Q6H PRN #20 tablet PRN Reason: nausea or headache Oxycodone HCl/Acetaminophen [Percocet 5-325 mg Tablet] 1 - 2 each PO Q6H PRN #14 tablet PRN Reason: pain Comments: As discussed, your CAT scan today shows some inflammation around of the right kidney and ureter, this could be consistent with a kidney infection or a recently passed kidney stone. There is no evidence of a current kidney stone being passed but she still have the one up in your right kidney which might bother you some day, might not. Return if worse or if developing a fever. Follow-up with your primary care physician, next available appointment. Do not drink or drive while taking prescription pain medications.
[2020-03-08 17:29] LABS: BASOPHILS # (AUTO) 0.1 10^3/uL (0.0-0.1); BASOPHILS % (AUTO) 0.4 %; EOSINOPHILS % (AUTO) 0.1 %; HGB - HEMOGLOBIN 15.4 g/dL (14.0-18.0); LYMPHOCYTES # (AUTO) 1.2 10^3/uL (1.5-3.5); LYMPHOCYTES % (AUTO) 8.5 %; MEAN CORPUSCULAR HEMOGLOBIN 32.1 pg (27.0-31.0); MEAN CORPUSCULAR HGB CONC 35.3 g/dL (32.0-36.0); MEAN CORPUSCULAR VOLUME 90.8 fL (80.0-94.0); MEAN PLATELET VOLUME 10.3 fL (7.4-11.4); MONOCYTES # (AUTO) 0.9 10^3/uL (0.0-1.0); MONOCYTES % (AUTO) 6.3 %; NEUTROPHILS % (AUTO) 84.1 %; PLT - PLATELET COUNT 228 10^3/uL (130-450); RED CELL DISTRIBUTION WIDTH 12.7 % (12.0-15.0); WHITE BLOOD COUNT 14.2 x10^3/uL (4.8-10.8)
[2020-03-08 17:42] LABS: ALBUMIN 4.8 g/dL (3.2-5.5); ALBUMIN/GLOBULIN RATIO 1.4 (1.0-2.2); CALCIUM 9.4 mg/dL (8.5-10.3); TOTAL PROTEIN 8.3 g/dL (6.7-8.2)
[2020-03-08] MEDS ORDERED: IOVERSOL 320 100 ML VIAL IVP ONE ×2 (17:54→18:10)
--- NOTE | 2020-03-08 18:40 | CT Report ---
Reason: IV only, RLQ pain Procedure Date: 03/08/2020 Accession Number: [id number] / [id number] Procedure: CT - Abdomen/Pelvis W CPT Code: Final Report FULL RESULT: EXAM: CT ABDOMEN AND PELVIS EXAM DATE: 03/08/2020 06:09 PM. CLINICAL HISTORY: Right lower quadrant pain. Right flank pain. COMPARISONS: None. TECHNIQUE: Routine helical CT imaging was performed through the abdomen and pelvis. IV contrast: 100 mL Optiray 320. Enteric contrast: No. Reconstructions: Coronal and sagittal. In accordance with CT protocol optimization, one or more of the following dose reduction techniques were utilized for this exam: automated exposure control, adjustment of mA and/or KV based on patient size, or use of iterative reconstructive technique. FINDINGS: Lung Bases: Unremarkable. Liver: Normal. No masses. Gallbladder/Bile Ducts: Unremarkable. Spleen: Normal. Pancreas: Normal. Adrenal Glands: Normal. Kidneys: A nonobstructive right renal stone measures 7 mm. There is mild stranding around the right kidney and right ureter. No hydronephrosis. Peritoneal Cavity/Bowel: Normal. No free fluid, free air or adenopathy. No masses or acute inflammatory process. The appendix is well visualized and normal. Pelvic Organs: Normal. The bladder and visualized pelvic organs are within normal limits. Vasculature: Arterial calcifications indicate atherosclerosis. Bones: Periarticular sclerosis and osteophyte formation is at both SI joints. Other: None. IMPRESSION: 1. Nonobstructive right nephrolithiasis. 2. Stranding around the right kidney and ureter may indicate an upper urinary tract infection or sequela of a recently passed stone. RADIA
[2020-03-08 18:48] LABS: BILIRUBIN,URINE NEGATIVE (NEGATIVE); CLARITY,URINE CLEAR (CLEAR); GLUCOSE, URINE (UA) NEGATIVE (NEGATIVE); KETONES,URINE (UA) 40 mg/dL (NEGATIVE); LEUKOCYTE ESTERASE, URINE NEGATIVE (NEGATIVE); NITRITE,URINE NEGATIVE (NEGATIVE); OCCULT BLOOD,URINE NEGATIVE (NEGATIVE); PH,URINE 5.5 PH (5.0-7.5); PROTEIN,URINE NEGATIVE (NEGATIVE); UROBILINOGEN,URINE 0.2 (NORMAL) E.U./dL (NORMAL)
[2020-03-08] MEDS ORDERED: CIPROFLOXACIN 250 MG TABLET PO STA (18:52)
[2020-03-08] MEDS ORDERED: oxyCODONE/ACET 5/325 Prepack 4 PO STA (18:57)
[2020-03-08 19:09] VITALS: BP 139/101
== END 2020-03-08 19:17 | disposition home or self-care (01) ==
LOC: ED 16:35
DX: R10.9 Unspecified abdominal pain (principal); I10 Essential (primary) hypertension; E11.9 Type 2 diabetes mellitus without complications; Z79.84 Long term (current) use of oral hypoglycemic drugs
CPT/HCPCS: 36415; 74177; 80053; 81003; 83690; 85025; 87086; 96374; 96375; 99283; 99284; A9270; J1170; Q9967; 81001

== ENCOUNTER 2020-03-17 10:10 | Emergency (ER) | payer BC ==
[2020-03-17 11:09] LABS: BASOPHILS # (AUTO) 0.1 10^3/uL (0.0-0.1); BASOPHILS % (AUTO) 0.5 %; EOSINOPHILS % (AUTO) 0.1 %; HGB - HEMOGLOBIN 15.5 g/dL (14.0-18.0); LYMPHOCYTES # (AUTO) 0.7 10^3/uL (1.5-3.5); LYMPHOCYTES % (AUTO) 4.4 %; MEAN CORPUSCULAR HGB CONC 33.8 g/dL (32.0-36.0); MEAN CORPUSCULAR VOLUME 94.6 fL (80.0-94.0); MEAN PLATELET VOLUME 11.7 fL (7.4-11.4); MONOCYTES # (AUTO) 0.6 10^3/uL (0.0-1.0); MONOCYTES % (AUTO) 4.2 %; NEUTROPHILS # (AUTO) 13.2 10^3/uL (1.5-6.6); NEUTROPHILS % (AUTO) 90.1 %; PLT - PLATELET COUNT 211 10^3/uL (130-450); RED BLOOD COUNT 4.84 10^6/uL (4.70-6.10); RED CELL DISTRIBUTION WIDTH 12.8 % (12.0-15.0); WHITE BLOOD COUNT 14.6 x10^3/uL (4.8-10.8)
[2020-03-17 11:16] LABS: BILIRUBIN,URINE NEGATIVE (NEGATIVE); GLUCOSE, URINE (UA) NEGATIVE (NEGATIVE); KETONES,URINE (UA) 15 mg/dL (NEGATIVE); LEUKOCYTE ESTERASE, URINE NEGATIVE (NEGATIVE); NITRITE,URINE NEGATIVE (NEGATIVE); OCCULT BLOOD,URINE LARGE (NEGATIVE); PROTEIN,URINE NEGATIVE (NEGATIVE); UROBILINOGEN,URINE 0.2 (NORMAL) E.U./dL (NORMAL)
[2020-03-17 11:18] LABS: CLARITY,URINE CLEAR (CLEAR)
[2020-03-17 11:24] LABS: ALBUMIN 4.7 g/dL (3.2-5.5); ALBUMIN/GLOBULIN RATIO 1.2 (1.0-2.2); CALCIUM 9.3 mg/dL (8.5-10.3); CREATININE 1.2 mg/dL (0.6-1.2); TOTAL PROTEIN 8.5 g/dL (6.7-8.2)
[2020-03-17 11:34] LABS: BACTERIA,URINE Rare /HPF (None Seen); SQUAMOUS EPITHELIAL CELL,UR RARE Squamous (<= Few)
--- NOTE | 2020-03-17 11:40 | ED Physician Documentation ---
PD HPI ABD PAIN - Stated complaint Stated Complaint: R FLANK PX - Chief complaint Chief Complaint: Abd Pain - History obtained from History obtained from: Patient - History of Present Illness Timing - onset: Enter time (399), Today Timing - duration: Hours Timing - details: Abrupt onset, Still present Quality: Aching, Sharp, Pain Location: RUQ Radiation: Right flank Improved by: Other (nothing) Worsened by: Other (nothing) Associated symptoms: Nausea, Vomiting. No: Fever Similar symptoms before: Diagnosis (kidney stone) Recently seen: Emergency Dept - Additional information Additional information: 60-year-old male has developed pain in his right flank 10 days ago and he was seen here in the emergency department. He was evaluated by Dr. Declid found on CT scan to have some perinephric stranding he was treated for possible Peylo and had slow improvement. Yesterday he had resolution of symptoms and this morning he awoke at 4am with acute pain and vomiting. Review of Systems Constitutional: denies: Fever Eyes: denies: Decreased vision Ears: denies: Ear pain Nose: denies: Rhinorrhea / runny nose, Congestion Throat: denies: Sore throat Cardiac: denies: Chest pain / pressure Respiratory: denies: Dyspnea, Cough GI: reports: Abdominal Pain, Nausea, Vomiting : denies: Dysuria, Frequency Skin: denies: Rash Musculoskeletal: reports: Back pain. denies: Neck pain, Extremity pain Neurologic: denies: Generalized weakness, Focal weakness, Numbness PD PAST MEDICAL HISTORY - Past Medical History Past Medical History: Yes Cardiovascular: Hypertension, High cholesterol Respiratory: None Neuro: None Endocrine/Autoimmune: Type 2 diabetes, HyPOthyroidism GI: None : Kidney stones HEENT: None Derm: None - Past Surgical History Past Surgical History: No - Present Medications Home Medications: Ambulatory Orders Medication Instructions Recorded Confirmed Atorvastatin [Lipitor] 20 mg PO DAILY 01/23/15 05/03/17 Lisinopril 10 mg PO DAILY 01/23/15 05/03/17 Metformin HCl 1,500 mg PO DAILY 01/23/15 05/03/17 Levothyroxine Sodium 88 mcg PO DAILY 05/03/17 05/03/17 Hydrocodone/Acetaminophen 1 - 2 each PO Q6H PRN #14 tablet 09/15/18 [Hydrocodon-Acetaminophen 5-325] Tamsulosin [Flomax] 0.4 mg PO DAILY #14 capsule 09/15/18 Ciprofloxacin HCl [Cipro] 500 mg PO BID #20 tablet 03/08/20 Metoclopramide [Reglan] 10 mg PO Q6H PRN #20 tablet 03/08/20 Oxycodone HCl/Acetaminophen 1 - 2 each PO Q6H PRN #14 tablet 03/08/20 [Percocet 5-325 mg Tablet] Tamsulosin [Flomax] 0.4 mg PO DAILY #7 capsule 03/17/20 - Allergies Allergies/Adverse Reactions: Allergies Allergy/AdvReac Type Severity Reaction Status Date / Time No Known Drug Allergies Allergy Verified 03/17/20 10:24 - Social History Does the pt smoke?: No Smoking Status: Never smoker Does the pt drink ETOH?: No Does the pt have substance abuse?: No - Immunizations Immunizations are current?: Yes Immunizations: TDAP current <10years - POLST Patient has POLST: No PD ED PE NORMAL - Vitals Vital signs reviewed: Yes (hypertensive) - General General: Alert and oriented X 3, No acute distress, Well developed/nourished - HEENT HEENT: Atraumatic, PERRL, EOMI - Neck Neck: Supple, no meningeal sign - Cardiac Cardiac: RRR, No murmur - Respiratory Respiratory: No respiratory distress, Clear bilaterally - Abdomen Abdomen: Normal bowel sounds, Soft, Non tender, Non distended, No organomegaly - Back Back: No spinal TTP, Other (minimal tenderness to the right flank. Minimal ) - Derm Derm: Normal color, Warm and dry, No rash - Extremities Extremities: No deformity, No edema - Neuro Neuro: Alert and oriented X 3, vice president planning 2-12 intact, No motor deficit, No sensory deficit, Normal speech Eye Opening: Spontaneous Motor: Obeys Commands Verbal: Oriented GCS Score: 15 - Psych Psych: Normal mood, Normal affect Results - Vitals Vitals: Vital Signs - 24 hr 03/17/20 10:21 Temperature 35.8 C L Heart Rate 77 Respiratory 18 Rate Blood Pressure 158/79 H O2 Saturation 99 Oxygen O2 Source Room air - Labs Labs: Laboratory Tests 03/17/20 03/17/20 03/17/20 10:55 10:55 10:55 WBC 14.6 H RBC 4.84 Hgb 15.5 Hct 45.8 MCV 94.6 H MCH 32.0 H MCHC 33.8 RDW 12.8 Plt Count 211 MPV 11.7 H Neut # (Auto) 13.2 H Lymph # (Auto) 0.7 L [place] # (Auto) 0.6 Eos # (Auto) 0.0 Baso # (Auto) 0.1 Absolute Nucleated RBC 0.00 Nucleated RBC % 0.0 Sodium 135 Potassium 4.4 Chloride 98 L Carbon Dioxide 22 Anion Gap 15.0 H BUN 15 Creatinine 1.2 Estimated GFR (MDRD) 62 L Glucose 170 H Calcium 9.3 Total Bilirubin 1.0 AST 32 ALT 27 Alkaline Phosphatase 73 Total Protein 8.5 H Albumin 4.7 Globulin 3.8 Albumin/Globulin Ratio 1.2 Lipase 29 Urine Color YELLOW Urine Clarity CLEAR Urine pH 5.0 Ur Specific [place] 1.025 Urine Protein NEGATIVE Urine Glucose (UA) NEGATIVE Urine Ketones 15 H Urine Occult Blood LARGE H Urine Nitrite NEGATIVE Urine Bilirubin NEGATIVE Urine Urobilinogen 0.2 (NORMAL) Ur Leukocyte Esterase NEGATIVE Urine RBC 6-10 H Urine WBC 0-3 Ur Squamous Epith Cells RARE Squamous Urine Bacteria Rare Ur Microscopic Review INDICATED Urine Culture Comments NOT INDICATED - Rads (name of study) CT ab/pel wo Radiology: Prelim report reviewed (Impression: There is an 8 mm obstructing stone in the proximal right ureter with upstream mild hydronephrosis.), EMP read indepedently, See rad report Procedures - Bedside sono Bedside sono by EMP: With use of bedside ultrasound the right kidney is imaged there is evidence of hydronephrosis. PD MEDICAL DECISION MAKING - ED course Complexity details: reviewed old records, reviewed results, re-evaluated patient, considered differential, d/w patient ED course: 60-year-old male with recurrent right flank pain today on his CT scan appears to have a stone that has moved into the ureter and is approximately 8 mm in size. He has excellent relief of his pain with use of intravenous Toradol is given a liter of saline and I have discussed with the patient the natural course of kidney stone and the expectation that he will be able to pass this and have recommended that he talk to the urologist today as he may have trouble passing the stone. He does have oxycodone at home and we will provide some tamsulosin. Departure - Departure Disposition: 01 Home, Self Care Clinical Impression: Ureterolithiasis Condition: Stable Instructions: ED Stone Renal W Colic Follow-Up: Mahendra Cruz MD [Primary Care Provider] - Fermin Turk MD [Provider Admit Priv/Credential] - Prescriptions: Tamsulosin [Flomax] 0.4 mg PO DAILY #7 capsule
[2020-03-17] MEDS ORDERED: KETOROLAC 30 MG/ML VIAL IVP STA (11:55)
[2020-03-17] MEDS ORDERED: SODIUM CHLORIDE 0.9% 1,000 ML IV STA (11:55)
--- NOTE | 2020-03-17 12:23 | CT Report ---
Reason: right flank pain, hydro on bedside, hematuria Procedure Date: 03/17/2020 Accession Number: [id number] / [id number] Procedure: CT - Abdomen/Pelvis WO CPT Code: Final Report FULL RESULT: EXAM: CT ABDOMEN AND PELVIS EXAM DATE: 03/17/2020 11:56 AM. CLINICAL HISTORY: Right flank pain, hydro on bedside, hematuria. COMPARISONS: ABDOMEN/PELVIS W 03/08/2020 6:02 PM. TECHNIQUE: Routine helical CT imaging was performed through the abdomen and pelvis. IV contrast: CONTRAST. Enteric contrast: No. Reconstructions: Coronal and sagittal. In accordance with CT protocol optimization, one or more of the following dose reduction techniques were utilized for this exam: automated exposure control, adjustment of mA and/or KV based on patient size, or use of iterative reconstructive technique. FINDINGS: Lung Bases: Unremarkable. Liver: Normal. No masses. Gallbladder/Bile Ducts: Unremarkable. Spleen: Normal. Pancreas: Normal. Adrenal Glands: Normal. Kidneys: There is an 8 mm obstructing stone in the proximal right ureter with upstream mild hydronephrosis and extensive perinephric fat stranding on the right. Peritoneal Cavity/Bowel: Normal. No free fluid, free air or adenopathy. No masses or acute inflammatory process. The appendix is well visualized and normal. Pelvic Organs: Normal. The bladder and visualized pelvic organs are within normal limits. Vasculature: No aneurysms or other significant abnormality. Bones: No significant abnormality. Other: None. IMPRESSION: There is an 8 mm obstructing stone in the proximal right ureter with upstream mild hydronephrosis. RADIA
[2020-03-17 13:17] VITALS: BP 143/80
== END 2020-03-17 13:24 | disposition home or self-care (01) ==
LOC: ED 10:10
DX: N13.2 Hydronephrosis with renal and ureteral calculous obstruction (principal); I10 Essential (primary) hypertension; E11.9 Type 2 diabetes mellitus without complications; Z79.84 Long term (current) use of oral hypoglycemic drugs
CPT/HCPCS: 36415; 74176; 80053; 81001; 81003; 83690; 85025; 87086; 96361; 96374; 99284

== ENCOUNTER 2020-05-01 11:59 | Outpatient (CLI) | payer BC ==
--- NOTE | 2020-05-01 13:38 | CT Report ---
PROCEDURE: Abdomen/Pelvis WO INDICATIONS: URETERAL STONE TECHNIQUE: Noncontrast 5 mm thick sections acquired from the diaphragms to the symphysis. 5 mm coronal and sagi ttal reformats were then performed. For radiation dose reduction, the following was used: automated exposure control, adjustment of mA and/or kV according to patient size. COMPARISON: CT examination dated 03.17.20 FINDINGS: Image quality: Excellent. ABDOMEN: Lung bases: There is mild scarring within the medial segment right middle lobe. Calcification of the coronary vasculature. Lung bases are otherwise clear. Heart size is normal. Solid organs: Liver and spleen are normal in size. Gallbladder is within normal limits Pancreas is normal in contours. No adrenal nodules. There is decreased, mild right greater than left perinephri c fat stranding. Mild right renal enlargement. Left kidney normal in size. No nephrolithiasis. No lef t hydronephrosis nor left ureteral dilatation. There is mild right hydronephrosis and right proximal ureteral dilatation, which is slightly increased. Previously seen proximal right ureteral calculus cunningham s migrated into the mid ureter, measuring 6 mm. Peritoneum and bowel: Unenhanced bowel loops demonstrate normal wall thickness and caliber. Normal a ppendix. No free fluid or air. Nodes and vessels: No retroperitoneal or mesenteric adenopathy by size criteria. Aorta and inferior vena cava are normal in caliber. Miscellaneous: No ventral hernias. PELVIS: Genitourinary: Urinary bladder is decompressed. Miscellaneous: No inguinal hernias or adenopathy. Bones: No suspicious bony lesions. No vertebral body compression fractures. IMPRESSION: 1. Right ureteral calculus has migrated into the mid ureter. Slightly increased, moderate hydronephro sis. 2. Normal appendix. 3. Coronary artery disease. Reviewed by: Cezar James MD on 05/01/2020 1:37 PM PDT Approved by: Cezar James MD on 05/01/2020 1:37 PM PDT Station ID: [id number]
== END 2020-05-01 12:00 | disposition home or self-care (01) ==
LOC: DI 11:59
PROVIDERS: ATTEND Physician Assistant
DX: N13.2 Hydronephrosis with renal and ureteral calculous obstruction (principal)
CPT/HCPCS: 74176

== ENCOUNTER 2020-06-24 06:51 | Outpatient (CLI) | payer BC ==
[2020-06-24 15:15] LABS: CREATININE,URINE 153.4 mg/dL; MICROALBUMIN,URINE 0.3 mg/dL (0-300.0)
[2020-06-24 15:34] LABS: CALCIUM 9.8 mg/dL (8.5-10.3); CREATININE 0.9 mg/dL (0.6-1.2)
[2020-06-24 20:32] LABS: HEMOGLOBIN A1c% 7.1 % (4.27-6.07)
== END 2020-06-24 06:52 | disposition home or self-care (01) ==
LOC: LAB.S 06:51
PROVIDERS: ATTEND Internal Medicine
DX: I10 Essential (primary) hypertension (principal); R73.01 Impaired fasting glucose; E78.5 Hyperlipidemia, unspecified; M54.5 Low back pain; D72.829 Elevated white blood cell count, unspecified
CPT/HCPCS: 36415; 80048; 82043; 82570; 83036

== ENCOUNTER 2020-07-28 07:10 | Outpatient (CLI) | payer BC ==
[2020-07-28 15:42] LABS: CHOL/HDL RATIO 3.7 (<5.0); CHOLESTEROL 190 mg/dL; HDL CHOLESTEROL 52 mg/dL; LDL CHOLESTEROL,CALCULATED 115 mg/dL; LDL/HDL RATIO 2.2 (<3.6); VLDL CHOLESTEROL 23 mg/dL
[2020-07-29 13:56] LABS: HEPATITIS C ANTIBODY NON-REACTIVE (NON-REACTIVE)
== END 2020-07-28 07:11 | disposition home or self-care (01) ==
LOC: LAB.S 07:10
PROVIDERS: ATTEND Internal Medicine
DX: E03.9 Hypothyroidism, unspecified (principal); E11.9 Type 2 diabetes mellitus without complications; E78.5 Hyperlipidemia, unspecified; I10 Essential (primary) hypertension; N20.0 Calculus of kidney; Z11.59 Encounter for screening for other viral diseases
CPT/HCPCS: 36415; 80061; 83721; 84443; 86803